=== PATIENT | male | born 1975 | race Caucasian/White ===

== ENCOUNTER 2016-04-05 08:37 | Inpatient (IN) | payer OTHER ==
--- NOTE | ~2016-04-05 | CO ---
Unit #: [id number] #: [id number] Patient: JUAN BOATENG [id number] [facility]. [place], [place] [address] [id number] I MR#: [id number] NAME: JUAN BOATENG ROOM: 308 Age: 40 Sex: M Admission Date: 04/05/2016 : 1975 Attending Physician: Stuart Mauro M.D. Primary Care Physician: [facility]. CONSULTATION REPORT REASON FOR CONSULTATION Elevated troponin and chest pain. HISTORY OF PRESENT ILLNESS This is a 40-year-old white male, who presented to the emergency room at [facility] because of chest pain. He states he has been depressed and stressed about his finances. He got a hold of 3.5 g of cocaine and did most of it last night. He developed left-sided chest tightness with sharp pain at the mid axillary line that did not radiate into his neck, arm, or jaw. It occurred off and on. He had associated dyspnea, nausea, and diaphoresis. Because of the symptoms continued, he came to the emergency room for evaluation. He was treated with aspirin, Lovenox, and Plavix. He was given sublingual nitroglycerin, but had recurrent chest pain. He was seen at this facility in 2014 for a similar event, where he used cocaine. At that time, he underwent exercise Cardiolite stress test, which was normal. He has no risk factors for ischemic heart disease. He denies a history of hypertension, hyperlipidemia, diabetes, or nicotine abuse. There is no family history of premature coronary artery disease. He states since Thanksgiving he has had similar chest pain that occurred mostly with activities. He says when he does his job he gets short of breath and has chest pain. It is mostly relieved with rest. He takes aspirin and has relief also. His troponin was initially 0.35, trended downward briefly at 0.29, but now has upward trend of 0.35. His EKG shows no acute changes, but noted for inferolateral Q waves that was not on previous EKGs. He says he only uses cocaine on rare occasions, but because of his mental state he decided to use. PAST MEDICAL HISTORY 1. 2D echocardiogram on 06/05/2014 showed an ejection fraction equal to 50% to 55% with trace tricuspid regurgitation. 2. Exercise Cardiolite stress test on 06/05/2014 showed no ischemia or infarct with an ejection fraction of 61%. 3. Cocaine abuse. 4. Marijuana use. 5. Depression. PAST SURGICAL HISTORY 1. Hernia repair. 2. Appendectomy. SOCIAL HISTORY The patient lives with his girlfriend. He does odd jobs. He denies a history of tobacco use. Uses marijuana on occasion. Also drinks on Unit #: [id number] #: [id number] Patient: JUAN BOATENG occasion. He states his cocaine use is sporadic. FAMILY HISTORY Negative for coronary artery disease. ALLERGIES No known drug allergies. HOME MEDICATIONS No current medications. REVIEW OF SYSTEMS CONSTITUTIONAL: Negative for fever or chills. Reports no weight gain or weight loss. HEENT: No headache, hearing or vision changes, or difficulty with swallowing. No dizziness. CARDIOVASCULAR: Had chest pain as described in the HPI. Positive for palpitations. No paroxysmal nocturnal dyspnea or orthopnea. Denies syncope or near syncope. RESPIRATORY: Positive for dyspnea that accompanies chest pain. No cough or hemoptysis. GASTROINTESTINAL: Had a bout of nausea, but no abdominal pain or vomiting. Reports occasional "indigestion." EXTREMITIES: Negative for lower extremity edema. PHYSICAL EXAMINATION VITAL SIGNS: Blood pressure 121/84, heart rate 96, temperature 97.4. BMI of 25. GENERAL: This is a pleasant 40-year-old well-developed, young white male, who is in no acute distress. NEUROLOGIC: He is awake, alert, and oriented. There are no focal weaknesses. NECK: Trachea is midline. No thyromegaly or lymphadenopathy. No jugular venous distention. HEART: S1 and S2. Heart sounds are normal. No murmurs. No rubs or clicks. Regular rate and rhythm. LUNGS: Clear to auscultation without rales, rhonchi, or wheezing. ABDOMEN: Soft and nontender with bowel sounds are present. EXTREMITIES: Without leg edema. SKIN: Warm and dry. DIAGNOSTIC STUDIES LABORATORY RESULTS: Hemoglobin 16.5, hematocrit 48.9, platelet count 225, and white count 19.9. Sodium 138, potassium 3.6, BUN 17, creatinine 0.9, glucose 103. CK-MB 9.6, troponin 0.35 to 0.29 to 0.35. IMAGING STUDIES: Chest x-ray shows no active disease. CARDIOVASCULAR STUDIES: EKG shows sinus tachycardia, rate of 108 beats per minute with inferolateral Q waves. There is poor R-wave progression. IMPRESSION 1. Chest pain secondary to cocaine use. 2. Cocaine abuse. 3. Depression. 4. Elevated troponin secondary to cocaine abuse causing oxygen supply-demand mismatch. Unit #: [id number] #: [id number] Patient: JUAN BOATENG PLAN 1. Cardiology was consulted for elevated troponin and chest pain. The troponin elevation and chest pain is most likely secondary to cocaine abuse. However, the patient has similar pain without using cocaine. His EKG shows inferolateral Q waves that was not on previous EKGs. 2. We will repeat EKG. 3. Consider cardiac testing with stress test. 4. We will start on aspirin. 5. Lipid profile will be obtained. 6. Further recommendations to follow. Thank you for allowing us to assist in this patient's care. Dictated by... Jose Alejandro Anderson A.P.R.N. for Gabi Villanueva/mukesh TD: 04/06/2016 22:52 JOB #: [id number] CONSULTATION REPORT X Jose Alejandro Anderson APRN X CONSULTATION REPORT
--- NOTE | ~2016-04-05 | DS ---
Unit #: [id number] #: [id number] Patient: JUAN BOATENG [id number] [facility]. [place], [place] [address] [id number] I MR#: [id number] NAME: JUAN BOATENG ROOM: 308 Age: 40 Sex: M Admission Date: 04/05/2016 : 1975 Discharge Date: 04/06/2016 Attending Physician: Stuart Mauro M.D. Primary Care Physician: [facility] DISCHARGE SUMMARY CHIEF COMPLAINT Chest pain. HISTORY OF PRESENTING ILLNESS The patient is a 40-year-old man with a past medical history of substance abuse including cocaine, who presented to the [facility] Emergency Room with a chief complaint of chest pain. He mentioned, he was noted too much cocaine and started developed chest pains. HOSPITAL COURSE He was transferred to [facility]. Dr. Cho from Cardiology and Dr. Freire from Psychiatry evaluated him. Dr. Cho was planning for cardiac cath and the patient refused. He says I do not want any further workup. He would not let me examine him. He said send me the paper work for signing out myself against medical advice and explained him in detail. He needs to work on quitting cocaine and taking cocaine can harm his heart and he can suddenly. He says, I understand and I do not want any further workup to be done. Kindly note, he will be discharged against medical advice and strongly counseled him to quit drugs and seek medical care. Dictated by... Gabi Agee/mukesh TD: 04/09/2016 05:04 JOB #: [id number] DISCHARGE SUMMARY X X DISCHARGE SUMMARY
--- NOTE | ~2016-04-05 | EKG ---
PATIENT: JUAN BOATENG UNIT #: [id number] Ventricular Rate: 108 BPM Atrial Rate: 108 BPM P-R Interval: 140 ms QRS Duration: 88 ms Q-T Interval: 380 ms QTC Calculation(Bezet): 509 ms P [place]: 70 degrees Calculated R [place]: 71 degrees Calculated T [place]: 30 degrees Diagnosis Line: Sinus tachycardia Diagnosis Line: Possible Left atrial enlargement Diagnosis Line: Borderline ECG Diagnosis Line: When compared with ECG of 14-OCT-2015 00:51, Diagnosis Line: No significant change was found Diagnosis Line: Confirmed by JON WORKMAN MD ([id number]) on Diagnosis Line: 04/10/2016 12:20:49 PM INTERPRETING MD: MARIANNE
--- NOTE | ~2016-04-05 | HP ---
Unit #: [id number] #: [id number] Patient: JUAN BOATENG [id number] [facility]. [place], [place] [address] [id number] I MR#: [id number] NAME: JUAN BOATENG ROOM: 308 Age: 40 Sex: M Admission Date: 04/05/2016 : 1975 Attending Physician: Gabino Hendrix M.D. Primary Care Physician: [facility] HISTORY AND PHYSICAL CHIEF COMPLAINT Chest pain. HISTORY OF PRESENT ILLNESS The patient is a 40-year-old male with (1) past medical history other than the cocaine use in the past, presented to the emergency room at [facility] with chest pain. The patient stated the patient took too much cocaine last p.m. from around late in the night to 2 or 3 o'clock this morning. The patient stated that after that the patient tried to lay down was having shortness of breath. The patient also complains of nausea and vomiting with fluids that he has tried to drink with a half bottle of Gatorade. The patient also complains that the chest pain is mainly left sided and is like (2) type pain and it was 10/10 in severity. No radiation. The patient received sublingual nitroglycerin at [facility] and the pain subsided. It was 6 to 7. The patient still continues to complain of the chest pain but is tolerable. The patient also complains of shortness of breath. The patient had a fever, also complains of feeling depressed. The patient had multiple admissions in the past with similar presentation. The patient had a stress test a few years ago that was negative. PAST MEDICAL HISTORY History of cocaine abuse. PAST SURGICAL HISTORY History of appendectomy and hernia repair. HOME MEDICATIONS None. ALLERGIES None. SOCIAL HISTORY He does not smoke tobacco. He does occasionally use marijuana and cocaine. As stated above, he denies alcohol use. He is currently unemployed. FAMILY HISTORY His mother had blood pressure medication in late 40s. REVIEW OF SYSTEMS A 14-point review of systems was performed and only pertinent positive findings as described above, remaining are negative. Unit #: [id number] #: [id number] Patient: JUAN BOATENG PHYSICAL EXAMINATION GENERAL: The patient is lying on the bed, not in acute distress. VITAL SIGNS: Temperature 97.4, pulse 96, respirations 18, saturating 99%, blood pressure is 121/84. HEENT: Head: Atraumatic, normocephalic. Pupils equal, round, and reactive to light and accommodation. Extraocular movements are intact. Moist mucous membranes. NECK: Supple. No JVD. LUNGS: Clear to auscultation. Decreased air entry. HEART: Regular rate and rhythm. ABDOMEN: Soft. Positive bowel sounds. EXTREMITIES: No cyanosis. No clubbing. NEUROLOGIC: Alert, awake, oriented. No gross focal motor deficit. PSYCHIATRIC: Appears depressed. DIAGNOSTIC STUDIES LABORATORY: Glucose 103, BUN 17, creatinine 0.9, sodium 138, potassium 3.6, chloride 101, bicarbonate 22, calcium 9.5. Total protein 8.4, AST 49, ALT 29, alkaline phosphatase 75. CK is 2121. INR is 1.2. Troponin is positive for 0.29 and the second one is 0.35. CK-MB is 9.6. WBC 13.9, hemoglobin 16.5, hematocrit 48.9, platelets 225,000, neutrophils 83.4. CARDIOVASCULAR: EKG shows sinus tachycardia at a rate of 108 beats per minute and possible left atrial enlargement and no acute ST-T changes. ASSESSMENT 1. Non ST elevation myocardial infarction. 2. Chest pain, persistent. 3. Cocaine abuse. 4. Rhabdomyolysis. 5. Depression. PLAN Plan to admit the patient to inpatient with telemetry. Patient will have the IV fluids with normal saline at 75 mL per hour. Will have repeat troponins and check the echocardiogram versus stress echo. Will have the cardiology evaluation. The patient was seen in the past to the cardiology multiple times. Continue with the pain control with morphine and will have the psych evaluation also for the depression. Further recommendations will follow as more lab results are available. Dictated by Gabi Douglas TD: 04/05/2016 16:00 JOB #: [id number] Unit #: [id number] #: [id number] Patient: JUAN BOATENG HISTORY AND PHYSICAL X X HISTORY AND PHYSICAL
--- NOTE | ~2016-04-05 | EKG ---
PATIENT: JUAN BOATENG UNIT #: [id number] Ventricular Rate: 99 BPM Atrial Rate: 99 BPM P-R Interval: 148 ms QRS Duration: 86 ms Q-T Interval: 380 ms QTC Calculation(Bezet): 487 ms P [place]: 72 degrees Calculated R [place]: 90 degrees Calculated T [place]: 39 degrees Diagnosis Line: Normal sinus rhythm Diagnosis Line: Possible Left atrial enlargement Diagnosis Line: Rightward axis Diagnosis Line: Prolonged QT Diagnosis Line: Abnormal ECG Diagnosis Line: When compared with ECG of 05-APR-2016 08:23, Diagnosis Line: (unconfirmed) Diagnosis Line: No significant change was found Diagnosis Line: Confirmed by CARLIN BASHIR MD ([id number]) on 04/06/2016 Diagnosis Line: 5:15:44 PM INTERPRETING MD: KRYSTEN TAVARES
--- NOTE | ~2016-04-05 | CO ---
Unit #: [id number] #: [id number] Patient: JUAN BOATENG [id number] [facility] [address] [facility]. [place], [place] [address] [id number] I MR#: [id number] NAME: JUAN BOATENG ROOM: 308 Age: 40 Sex: M Admission Date: 04/05/2016 : 1975 Attending Physician: Stuart Mauro M.D. Primary Care Physician: [facility] Consultation Date: 04/05/2016 CONSULTATION REPORT REASON FOR CONSULTATION Substance abuse, depression, anxiety. HISTORY OF PRESENT ILLNESS Mr. Alexis Boateng is a 40-year-old male, seen on 04/05/2016 in room 308 at [facility]. The patient presented with depression, anxiety, substance abuse. The patient's urine drug screen was positive for marijuana and cocaine. The patient reports that he uses here and there. The patient reported under lot of stress, anxious, nervous, sad, depressed, trouble falling/staying asleep with severe anxiety and feeling sad and depressed, but denied any suicidal or homicidal ideation. Denied any psychotic symptom. PAST PSYCHIATRIC HISTORY Remarkable for history of marijuana abuse since age 21, cocaine abuse recently. No history of any suicide attempt. PAST MEDICAL HISTORY The patient admitted with chest pain. No other chronic medical condition. MEDICATIONS The patient is currently on Lovenox and Plavix. ALLERGIES No known drug allergies. FAMILY HISTORY AND SOCIAL HISTORY The patient lives with girlfriend. The patient has 2 children, whom he has custody and the patient's girlfriend has 2 children. The patient reported a lot of stress. No history of any abuse. History of substance abuse as mentioned above. REVIEW OF SYSTEMS Complete review of systems is unremarkable. MENTAL STATUS EXAMINATION General appearance; the patient dressed casually, lying comfortably in bed, pleasant and cooperative during interview. Attention span and concentration, fair. Speech, regular rate and coherent. Oriented in time, place, and person. Mood and affect were sad, dysphoric, anxious. Thought process, coherent and goal directed. Thought content, the patient denied any thoughts of harming self or others or any psychotic symptom. Recent and remote memory, fair. Language, able to name object and repeat phrases. Fund of knowledge, fair. Insight and judgment, fair to slightly Unit #: [id number] #: [id number] Patient: JUAN BOATENG. DIAGNOSES Psychiatric: Major depressive disorder, recurrent, severe, F33.2; cocaine use disorder, moderate, F14.20; cannabis abuse, moderate, F12.20; anxiety disorder, not otherwise specified. Secondary diagnosis: Deferred. Medical diagnosis: Please refer to H and P. Stressors: Psychosocial stressors. ASSESSMENT/PLAN 1. Supportive psychotherapy and psychoeducation provided to the patient. 2. Educated about benefits and side effects of medication and course and prognosis of illness. 3. Advised Celexa 20 mg daily for depression, trazodone 50 mg at bedtime for sleep, and Vistaril 25 mg b.i.d. for anxiety. The patient was advised to follow up at [facility], telephone [phone]. The patient was also given crisis line number. Please feel free to call if any questions, telephone [phone]. Dictated by... Gabi Weaver/mukesh TD: 04/06/2016 02:03 JOB #: [id number] CONSULTATION REPORT X Robby Freire MD CONSULTATION REPORT
--- NOTE | ~2016-04-05 | CR72 ---
[facility]. [facility] A Service of [facility] RADIOLOGY TEXT RESULTS PATIENT: JUAN BOATENG LOCATION: SED : [birth year] UNIT #: [id number] AGE: [address]: Lisandro Carter MD SEX: M ORDER DR: [id number] E MR#: [id number] Acc #: [id number] NAME: JUAN BOATENG : 1975 SEX: M STUDY DATE/TIME: 04/05/2016 09:07 UNIT: SED ROOM: STUDY DESCRIPTION: CR Chest Single View Portable Attending Physician: Lisandro Carter M.D. Ordering Physician: Lisandro Carter M.D. Primary Care Physician: [facility], [facility]. MEDICAL IMAGING REPORT This report is preliminary unless electronic signature is present. EXAM Portable chest. HISTORY 40-year-old man complaining of dizziness, chest pain, shortness of air since last night after using cocaine. Patient having trouble speaking. COMPARISON CT chest 10/14/2015 and chest x-ray 10/14/2015. FINDINGS Portable upright chest is slightly lordotic in positioning. The cardiac, mediastinal and hilar contours are normal. The lungs are clear and there are no effusions. IMPRESSION Slight lordotic positioning of the chest. There are no acute cardiopulmonary findings. There is mild elevation of the right hemidiaphragm, similar to 10/14/2015. Dictated by... Shirlene Ruiz M.D. THIS IS AN ELECTRONICALLY VERIFIED REPORT Shirlene Ruiz M.D. at 04/05/2016 11:41 AM SMM/isabel TD: 04/05/2016 10:24 JOB #: [id number] MEDICAL IMAGING REPORT
[~2016-04-05 08:37] MED LIST: ACETAMINOPHEN PO; NO MEDICATIONS; NO MEDICATIONS PO
[2016-04-05 09:05] LABS: POC - CKMB 9.4 ng/mL (0.0-7.9)
[2016-04-05 09:06] LABS: POC - TROPONIN 0.35 ng/mL (<=0.05)
[2016-04-05 09:22] LABS: ALBUMIN SERUM 5.2 g/dL (3.5-5.0); ALKALINE PHOSPHATASE 75 U/L (32-92); ALT (SGPT) 29 U/L (10-40); AST (SGOT) 49 U/L (10-42); BILIRUBIN,TOTAL 1.1 mg/dL (0.2-2.0); BLOOD UREA NITROGEN 17 mg/dL (9-23); BUN/CREATININE RATIO 18.88; CALCIUM SERUM 9.5 mg/dL (8.4-10.2); CARBON DIOXIDE 22 mmol/L (22-31); CHLORIDE 101 mmol/L (100-111); CREATININE SERUM 0.9 mg/dL (0.6-1.4); GLOM FILT RATE Estimated ABOVE60 mL/min (>60); GLUCOSE FASTING 103 mg/dL (70-110); POTASSIUM 3.6 mmol/L (3.5-5.1); PROTEIN TOTAL SERUM 8.4 g/dL (6.0-8.3); SODIUM 138 mmol/L (135-145)
[2016-04-05 09:26] LABS: INR 1.2; PROTHROMBIN TIME (PATIENT) 13.6 SECONDS (9.5-12.4)
[2016-04-05 09:33] LABS: PARTIAL THROMBOPLASTIN TIME 29.7 SECONDS (25.6-38.1)
[2016-04-05 09:35] LABS: BASOPHIL% 0.2 % (0-2.5); EOSINOPHIL% 0.1 % (0.0-7.0); HEMATOCRIT 48.9 % (38.0-50.0); HEMOGLOBIN 16.5 gm/dL (13.0-16.0); LYMPHOCYTE% 7.5 % (17.0-45.0); MEAN CELL VOLUME 89.1 FL (83-96); MEAN CORPUSCULAR HGB CONC 33.6 g/dL (30-36); MONOCYTE# 1.2 X10e3 (0-1.0); MONOCYTE% 8.8 % (3.0-12.0); NEUTROPHIL# 11.6 X10e3 (1.5-7.1); NEUTROPHIL% 83.4 % (40-75); PLATELET COUNT 225 X10e3 (140-420); RED BLOOD COUNT 5.49 X10e (3.90-5.60); RED CELL DISTRIBUTION WIDTH 13.5 % (11.0-15.5); WHITE BLOOD COUNT 13.9 X10e3 (4.0-10.5)
[2016-04-05 09:36] LABS: DIFF IND NO
[2016-04-05 11:11] LABS: POC - CKMB 9.6 ng/mL (0.0-7.9); POC - TROPONIN 0.29 ng/mL (<=0.05)
[2016-04-06 08:12] LABS: HEMATOCRIT 44.5 % (38.0-50.0); HEMOGLOBIN 15.1 gm/dL (13.0-16.0); MEAN CELL VOLUME 90.4 FL (83-96); MEAN CORPUSCULAR HEMOGLOBIN 30.7 PG (28-34); RED BLOOD COUNT 4.93 X10e (3.90-5.60); RED CELL DISTRIBUTION WIDTH 13.6 % (11.0-15.5)
[2016-04-06 08:18] LABS: WHITE BLOOD COUNT 6.6 X10e3 (4.0-10.5)
[2016-04-06 08:44] LABS: BLOOD UREA NITROGEN 15 mg/dL (9-23); BUN/CREATININE RATIO 16.66; CALCIUM SERUM 8.6 mg/dL (8.4-10.2); CARBON DIOXIDE 22 mmol/L (22-31); CHLORIDE 106 mmol/L (100-111); CREATININE SERUM 0.9 mg/dL (0.6-1.4); GLOM FILT RATE Estimated ABOVE60 mL/min (>60); GLUCOSE FASTING 81 mg/dL (70-110); POTASSIUM 4.3 mmol/L (3.5-5.1); SODIUM 139 mmol/L (135-145)
[2016-04-06 08:46] LABS: CHOLESTEROL 165 mg/dL (0-200); HDL CHOLESTEROL 50 mg/dL (29-75); LDL CHOLESTEROL 98 mg/dL (-130); LDL/HDL RATIO 2 RATIO (0-4); TRIGLYCERIDES 83 mg/dL (10-160)
== END 2016-04-06 14:25 | disposition left against medical advice (07) | DRG 918 ==
LOC: SED 08:37 → SEDOF 12:07 → C3A PCU 15:00
PROVIDERS: Emergency Medicine; Internal Medicine; Nurse Practitioner
PROC: B24BYZZ Ultrasonography of Heart with Aorta using Other Contrast (ICD-10-PCS; principal; 2016-04-06)
DX: T40.5X1A Poisoning by cocaine, accidental (unintentional), initial encounter (principal); M62.82 Rhabdomyolysis; F33.2 Major depressive disorder, recurrent severe without psychotic features; F14.20 Cocaine dependence, uncomplicated; R07.9 Chest pain, unspecified; F12.20 Cannabis dependence, uncomplicated; F41.9 Anxiety disorder, unspecified
CPT/HCPCS: 36415; 71010; 80048; 80053; 80061; 82550; 82553; 83874; 84484; 85025; 85027; 85610; 85730; 90688; 90732; 93005; 93306; 94760; 96372; 96374; 99291; G0009; J1650; J2060